=== PATIENT | female | born 1950 | race Caucasian/White ===

== ENCOUNTER 2018-11-15 08:06 | Day surgery (SDC) | payer MEDICARE, MEDICAID ==
[~2018-11-15] VITALS: Ht 162.6 cm; Wt 68.2 kg
[~2018-11-15 08:06] MED LIST: ACET-2144 PO; CALC-729 PO; CALC300T4 PO; CHOL100010 PO; COL100C PO; COROTSUS OT; CRAN400C PO; DES150T PO; DIPH-423 PO; FAMO-1 PO; HYDR-3964 PO; LISI-600 PO; LYR25C PO; METH-603 PO; METO50TA16 PO; OXCA300T4 PO; PHEN-716 PO; SIMV20TA5 PO; TIZA2CAP PO; VAL2T PO; VITC500T PO; [UNRECOGNIZED DRUG - CODE] PO
[2018-11-15 08:30] VITALS: BP 136/74
[2018-11-15] MEDS ORDERED: fentaNYL/PF 50MCG/1 ML 2ML syringe ONE (08:38)
[2018-11-15] MEDS ORDERED: MIDAZolam 5mg/5ml vial ONE (08:38)
[2018-11-15] MEDS ORDERED: SODI1TAB59 PO (08:46)
[2018-11-15 09:26] VITALS: BP 112/66
[2018-11-15 09:36] VITALS: BP 109/59
[2018-11-15 09:46] VITALS: BP 110/63
[2018-11-15 09:56] VITALS: BP 119/70
== END 2018-11-15 09:59 | disposition home or self-care (01) ==
LOC: GI LAB 08:06
PROVIDERS: ATTEND Internal Medicine Gastroenterology
DX: Z12.11 Encounter for screening for malignant neoplasm of colon (principal); D12.8 Benign neoplasm of rectum; D12.2 Benign neoplasm of ascending colon; G80.9 Cerebral palsy, unspecified; Z88.1 Allergy status to other antibiotic agents; Z88.5 Allergy status to narcotic agent; Z88.8 Allergy status to other drugs, medicaments and biological substances; Z79.899 Other long term (current) drug therapy
CPT/HCPCS: 45385; 99153; G0500; J2250; J3010; J7030; 88305; 99152; A4620

== ENCOUNTER → 2019-07-28 | Outpatient (CLI) | payer MEDICARE, MEDICAID ==
[2019-07-28] VITALS (10 sets, daily range): BP systolic 82–138; BP diastolic 46–96
[~2019-07-28] VITALS: Ht 160 cm; Wt 84.8 kg
[~2019-07-28] MED LIST changes: -CHOL100010 PO; -COROTSUS OT; -DIPH-423 PO; -FAMO-1 PO; -HYDR-3964 PO; -METH-603 PO; -METO50TA16 PO; -PHEN-716 PO; -SIMV20TA5 PO; +SODI1TAB59 PO; -TIZA2CAP PO; +aminophylline 250mg/10ml inj. IV PRN; +atropine 0.1mg/ml 10ml syringe IV PRN; +metoprolol tartrate 1mg/ml inj IV PRN; +nitroGLYCERIN 0.4mg SUBLingual tab SL PRN; +normal saline 500ml IV soln 500 ML IV ONE; +regadenoson 0.4mg/5ml syringe IV ONE
== END | disposition home or self-care (01) ==
LOC: RAD 07:59
PROVIDERS: ATTEND Internal Medicine Interventional Cardiology
DX: R94.31 Abnormal electrocardiogram [ECG] [EKG] (principal); G80.9 Cerebral palsy, unspecified; I10 Essential (primary) hypertension
CPT/HCPCS: 78452; 93017; A9500; J0280; J2785; J7040

== ENCOUNTER 2024-04-20 20:18 | Emergency (ER) | payer MEDICARE, MEDICAID ==
[~2024-04-20] VITALS: Ht 162.6 cm; Wt 77.0 kg
[~2024-04-20 20:18] MED LIST changes: -ACET-2144 PO; +AMLO5TAB5 PO; +ATOR40TA PO; +DIAZ2TAB3 PO; -LISI-600 PO; +LISI20TA28 PO; +MAGN400C PO; +MELO-102 PO; +OMEP20TA23 PO; +SERT50TA PO; +TIZA2CAP PO; -VAL2T PO; -aminophylline 250mg/10ml inj. IV PRN; -atropine 0.1mg/ml 10ml syringe IV PRN; -metoprolol tartrate 1mg/ml inj IV PRN; -nitroGLYCERIN 0.4mg SUBLingual tab SL PRN; -normal saline 500ml IV soln 500 ML IV ONE; -regadenoson 0.4mg/5ml syringe IV ONE
[2024-04-20 21:32] LABS: BASOPHILS % (AUTO) 0.3 % (0-1); EOSINOPHILS % (AUTO) 0.1 % (0-6); HEMATOCRIT 42.4 % (35.0-45.0); HEMOGLOBIN 14.3 g/dl (12.0-16.0); LYMPHOCYTES # (AUTO) 0.5 X10'3 (1.1-4.8); LYMPHOCYTES % (AUTO) 5.4 % (21-51); MEAN CORPUSCULAR HGB CONC 33.7 g/dL (33.0-36.5); MEAN CORPUSCULAR VOLUME 89.1 FL (78-98); MEAN PLATELET VOLUME 6.9 FL (7.4-10.4); MONOCYTES # (AUTO) 0.7 X10'3 (0-0.9); MONOCYTES % (AUTO) 7.6 % (2-12); NEUTROPHILS # (AUTO) 8.5 X10'3 (1.8-7.7); NEUTROPHILS % (AUTO) 86.6 % (42-75); PLATELET COUNT 275 X10'3 (140-440); RED BLOOD COUNT 4.76 X10'6 (4.20-5.60); RED CELL DISTRIBUTION WIDTH 13.4 % (11.5-14.5); WHITE BLOOD COUNT 9.9 X10'3 (4.5-11.0)
[2024-04-20 21:52] LABS: ALBUMIN 3.5 G/DL (3.4-5.0); ANION GAP 5 (8-16); BLOOD UREA NITROGEN 18 MG/DL (7-18); BUN/CREATININE RATIO 15.1 (10.0-20.0); CALCIUM 9.5 MG/DL (8.5-10.1); CHLORIDE 103 MMOL/L (99-107); CREATININE 1.19 MG/DL (0.40-0.90); GLUCOSE 161 MG/DL (70-104); POTASSIUM 4.3 MMOL/L (3.5-5.1); PRO BRAIN NATRIURETIC PEPTIDE 827 PG/ML (0-125); SODIUM 139 MMOL/L (135-145); TOTAL CARBON DIOXIDE 30.7 MMOL/L (24-32); eCRCL 37 ML/MIN; eGFR 45 ML/MIN
[2024-04-20] MEDS: normal saline 1000ml 1,000 ML IV ONE (22:28)
[2024-04-21 01:28] LABS: BILIRUBIN,URINE NEGATIVE (Neg); CLARITY,URINE SLIGHTLY CLOUDY (Clear); COLOR,URINE YELLOW (Yellow); GLUCOSE, URINE NEGATIVE (Neg); KETONES,URINE NEGATIVE (Neg); LEUKOCYTE ESTERASE ,URINE SMALL (Neg); NITRITES, URINE NEGATIVE (Neg); OCCULT BLOOD,URINE NEGATIVE (Neg); PROTEIN,URINE 100 mg/dl (Neg); UROBILINOGEN,URINE 0.2 E.U/dL (0.2-1.0)
[2024-04-21 01:30] LABS: UA COLLECTION TYPE NON-SPECIFIED
[2024-04-21] MEDS: amLODIPine 5mg tablet PO ONE (01:33)
[2024-04-21 01:38] LABS: BACTERIA,URINE 3+ /HPF (Neg); RBC,URINE 0-2 /HPF (0-2); SQUAMOUS EPITHELIAL CELL,UR MODERATE /LPF (FEW)
[2024-04-21] MEDS ORDERED: CEPH-585 PO (03:13)
[2024-04-21] MEDS ORDERED: NIRM1TAB9 PO (03:13)
[2024-04-21] MEDS: cephalexin 250mg capsule PO ONE (03:31)
[2024-04-21] MEDS: acetaminophen 325mg tablet PO ONE (03:31)
[2024-04-21] MEDS: ondansetron 4mg rapidly disintigrating tab PO ONE (03:39)
[2024-04-21 04:07] VITALS: PULSE 92
[2024-04-21 04:35] VITALS: BP 175/97; RESP 18; TEMP 97.8; O2SAT 93
== END 2024-04-21 04:36 | disposition home or self-care (01) ==
LOC: ER 20:18
DX: U07.1 COVID-19 (principal); N39.0 Urinary tract infection, site not specified; E78.00 Pure hypercholesterolemia, unspecified; I10 Essential (primary) hypertension; K21.9 Gastro-esophageal reflux disease without esophagitis; M19.90 Unspecified osteoarthritis, unspecified site; G89.29 Other chronic pain; M54.9 Dorsalgia, unspecified; Z88.2 Allergy status to sulfonamides; Z88.8 Allergy status to other drugs, medicaments and biological substances; Z79.899 Other long term (current) drug therapy; Z90.49 Acquired absence of other specified parts of digestive tract; Z98.890 Other specified postprocedural states
CPT/HCPCS: 36415; 71045; 80048; 81001; 82948; 83605; 83880; 84145; 85025; 87040; 87077; 87088; 87186; 87502; 87503; 87811; 99285; J7030